=== PATIENT | female | born 1955 | race Caucasian/White ===

== ENCOUNTER 2023-05-25 08:03 | Emergency (ER) | payer MEDICARE, SELFPAY ==
--- NOTE | 2023-05-25 08:09 | ED.EYEPROB ---
HPI - Eye Problem General Chief complaint: Eye Problems Stated complaint: pink eye Time Seen by Provider: 05/25/23 08:05 Source: patient Mode of arrival: ambulatory Limitations: no limitations History of Present Illness HPI Narrative: Annette is a 68-year-old female patient presenting to the clinic today with complaints of possible pinkeye x 2 days. She reports she has slight discomfort, redness, and swelling to the left eye with yellowish drainage. Today drainage is clear. Denies any known foreign body in the eye. Denies any injury to the eye. Thought at 1st she may have had a stye in her eye. She is also reporting some sinus congestion that is chronic. She denies any fever or chills. Related Data Home Medications Medication Instructions Recorded Confirmed amlodipine 10 mg tablet 10 mg PO DAILY 05/25/23 05/25/23 atorvastatin 20 mg tablet 20 mg PO DAILY 05/25/23 05/25/23 bupropion HCl 150 mg 24 hr tablet, 150 mg PO DAILY 05/25/23 05/25/23 extended release celecoxib 200 mg capsule 200 mg PO DAILY 05/25/23 05/25/23 ezetimibe 10 mg tablet 10 mg PO DAILY 05/25/23 05/25/23 fluticasone propionate 50 50 mcg intranasal BID 05/25/23 05/25/23 mcg/actuation nasal spray,suspension losartan 50 mg tablet 50 mg PO DAILY 05/25/23 05/25/23 metformin 500 mg tablet,extended 500 mg PO DAILY 05/25/23 05/25/23 release 24 hr triamterene 37.5 1 cap PO DAILY 05/25/23 05/25/23 mg-hydrochlorothiazide 25 mg capsule Allergies Allergy/AdvReac Type Severity Reaction Status Date / Time No Known Allergies Allergy Verified 05/25/23 08:21 Review of Systems Review of Systems: Pertinent positives per HPI. Patient denies any fever, chills, rash, headache, visual changes, dizziness, cough, sore throat, shortness of breath, chest pain, palpitations, nausea, vomiting, diarrhea, constipation, abdominal pain, or any urinary issues. PMFSH Comments At the time of my signature, I reviewed and agree with the nursing past medical, surgical, social, and family history. There is no relevant family history pertinent to the patient complaint. Exam Narrative: General: Well-developed, well nourished, in no apparent distress Head: Normocephalic, atraumatic Eyes: Pupils equally round and reactive to light bilaterally, EOM intact, right sclera and conjunctive clear, left sclera and conjunctiva injected with mild lids swelling and clear watery discharge, right lids normal Ears: TMs intact and clear, ear canals clear, no drainage, grossly hearing normal. Nose: Nares patent, clear nasal discharge, mild inflammation, no sinus tenderness. Mouth: Oropharynx without lesions or masses, good dentition, MMM. Postnasal drip Neck: Supple, trachea midline, no enlargement of anterior or posterior cervical nodes, no thyroid masses or goiter palpable. Cardio: Regular rate and rhythm, s1 and s2 normal, no murmur appreciated. Resp: Clear to auscultation bilaterally anteriorly and posteriorly, no rhonchi, rales, wheezing or rubs Course Course Emergency Course: Portions of this record may have been created with voice recognition software. Level of Care: Express Care Visit Vital Signs Vital signs: Vital signs reviewed MDM - Eye Problem MDM Narrative Medical decision making narrative: At the time of visit patient is resting comfortably on exam table. I suspect the patient likely has a conjunctivitis - since she did have yellow drainage yesterday and increase in swelling and redness to the left eye I will go ahead and prescribe tobramycin. Patient is also requesting a refill on her Flonase and she has lost her prescription. Supportive measures were discussed with the patient she voiced understanding of the discharge instructions and agrees to treatment plan. Differential Diagnosis Differential diagnosis: Likely corneal abrasion, conjunctivitis and periorbital cellulitis Discharge Plan Discharge Clinical Impression: Conjunctivitis Qualifiers:
[2023-05-25 08:22] VITALS: BP 151/66; PULSE 85; RESP 18; TEMP 36.4; O2SAT 96
[2023-05-25 08:28] VITALS: BP 151/66; PULSE 85; RESP 18; TEMP 36.4; O2SAT 96
== END 2023-05-25 08:47 | disposition home or self-care (01) ==
PROVIDERS: Emergency Provider Nurse Practitioner Family
DX: H10.32 Unspecified acute conjunctivitis, left eye (principal); J30.2 Other seasonal allergic rhinitis; R01.1 Cardiac murmur, unspecified; I10 Essential (primary) hypertension
CPT/HCPCS: 99213; G0463